=== PATIENT | male | born 1985 | race Two or more races ===

== ENCOUNTER 2019-09-09 21:00 | Emergency (ER) | payer MEDICAID ==
[~2019-09-09] VITALS: Ht 177.8 cm; Wt 93.0 kg
--- NOTE | 2019-09-09 21:05 | NUR ---
PT [facility] [address] [employer] AND ADRIANE. SUICIDAL IDEATION W/ PLANS TO OVER DOSE ON HEROIN OR MEDICATION. DENIES HI. PT AAOX4, VSS, NO ACUTE DISTRESS NOTED. AWAITING FOR MD BLACK. SAFETY PRECAUTIONS IMPLEMENTED. SITTER AT BEDSIDE
--- NOTE | 2019-09-09 21:10 | NUR ---
BLOOD DRAWN AND SENT TO LAB
[2019-09-09 21:21] LABS: BASOPHILS % (AUTO) 0.4 % (0.0-2.0); EOSINOPHILS % (AUTO) 0.8 % (0.0-6.0); HEMATOCRIT 47 % (39-51); HEMOGLOBIN 15.6 g/dL (13.5-17.5); LYMPHOCYTES # (AUTO) 1.7 /CMM (0.8-4.8); MEAN CORPUSCULAR HGB CONC 33 g/dl (31.0-36.0); MEAN CORPUSCULAR VOLUME 96 fL (80-96); MONOCYTES # (AUTO) 1.3 /CMM (0.1-1.30); NEUTROPHILS # (AUTO) 7.6 /CMM (1.8-8.9); NEUTROPHILS % (AUTO) 70.8 % (43.0-81.0); PLATELET COUNT (AUTO) 272 /CMM (150-450); WHITE BLOOD COUNT (AUTO) 10.8 K/uL (4.3-11.0)
[2019-09-09 21:26] LABS: APPEARANCE,URINE Clear (CLEAR); BILIRUBIN,URINE SMALL (NEGATIVE); BLOOD, URINE Negative Ery/uL (NEGATIVE); COLOR,URINE Yellow (YELLOW); KETONES,URINE 15 (NEGATIVE); LEUKOCYTE ESTERASE ,URINE Negative (NEGATIVE); NITRITE, URINE Negative (NEGATIVE); PROTEIN,URINE Negative (NEGATIVE); UGLUCOSE Negative (NEGATIVE); UROBILINOGEN,URINE 0.2 EU/dL (0.2)
[2019-09-09] MEDS ORDERED: IV NS 0.9% 1,000 ML BAG IV ONE (21:30)
[2019-09-09 21:34] LABS: CALCIUM, SERUM 9.7 mg/dL (8.5-10.1); CARBON DIOXIDE 29 mmol/L (21-32); CHLORIDE 103 mmol/L (98-107); CREATININE 1.1 mg/dL (0.6-1.3); GLUCOSE 132 mg/dL (74-106); POTASSIUM 3.5 mmol/L (3.5-5.1); SODIUM SERUM 140 mmol/L (136-145); UREA NITROGEN, BLOOD 23 mg/dL (7-18)
[2019-09-09 21:40] LABS: ACETAMINOPHEN < 2 ug/ml (10-30); ALANINE AMINOTRANSFERASE 63 U/L (12-78); ALBUMIN 4.3 g/dL (3.4-5.0); ALCOHOL, BLOOD < 3 mg/dL (0-0); ALKALINE PHOSPHATASE 68 U/L (46-116); ASPARTATE AMINOTRANSFERASE 39 U/L (15-37); BILIRUBIN,DIRECT 0.1 mg/dL (0.0-0.2); BILIRUBIN,TOTAL 0.5 mg/dL (0.2-1.0); SALICYLATE 3.7 mg/dL (2.8-20.0); TOTAL PROTEIN, SERUM 7.9 g/dL (6.4-8.2)
[2019-09-09 21:43] LABS: BACTERIA,URINE Few /HPF (None Seen); SQUAMOUS EPITHELIAL CELL,UR Few /HPF (None Seen)
[2019-09-09 21:44] LABS: RBC,URINE 0-2 /HPF (0-2); WBC,URINE 0-2 /HPF (0-3)
--- NOTE | 2019-09-09 22:27 | NUR ---
Patient is resting comfortably in bed with eyes closed. Easily aroused. VSS
--- NOTE | 2019-09-09 23:21 | NUR ---
Patient is resting comfortably in bed with eyes closed. Easily aroused. VSS
--- NOTE | 2019-09-10 01:40 | NUR ---
Patient is resting comfortably in bed with eyes closed. Easily aroused. VSS. SITTER AT BEDSIDE. PROVIDED WITH A SANDWICH AND JUICE.
--- NOTE | 2019-09-10 02:51 | NUR ---
Patient is resting comfortably in bed with eyes closed. Easily aroused. VSS. SITTER AT BEDSIDE
--- NOTE | 2019-09-10 04:13 | NUR ---
PATIENT CHART UNDER REVIEW AT [facility]TA[facility]. PER JORGE, WILL CALL BACK ONCE PATIENT IS ACCEPTED.
--- NOTE | 2019-09-10 08:00 | NUR ---
FOOD TRAY PROVIDED. PATIENT A/OX4, BREATHING EVEN AND UNLABORED, NOS OB NOTED. SITTER AT BEDSIDE.
--- NOTE | 2019-09-10 09:19 | NUR ---
CALLED SO G[facility]NA JORGE. WAS INFORMED THAT NURSING SUPERVISIOR NEEDS TO APPROVE A BED
--- NOTE | 2019-09-10 09:28 | NUR ---
SPOKE TO JEAN MARIE AT [facility] INTAKE. ACCEPTED TO [place], BUT AWAITING BED ASSIGNMENT
--- NOTE | 2019-09-10 12:32 | NUR ---
[facility] DR. POOL ADMITTING PHONE# [phone] ext [phone] FOR REPORT CALL BETWEEN 5:45PM-6PM HARHSA ETHNIC STUDIES PROFESSOR
--- NOTE | 2019-09-10 13:00 | NUR ---
FOOD TRAY PROVIDED.
--- NOTE | 2019-09-10 14:40 | NUR ---
[facility] ETA 1900 TRIP NUMBER [id number].
--- NOTE | 2019-09-10 14:46 | NUR ---
CALLED [facility] FOR TRANSPORT TO [facility]. ETA 183.
--- NOTE | 2019-09-10 16:27 | NUR ---
SO [facility] CALLED TO SAY THAT WE CAN PROVIDE REPORT TO NURSING SOFTWARE WRITER. PT GOING TO ROOM 624-B.
--- NOTE | 2019-09-10 16:40 | NUR ---
PATIENT DENIES SI/HI AT THIS TIME, PER PATIENT "I AM NO LONGER SUICIDAL, I WOULD LIKE TO BE DISCHARGED." DR. RIGGS MADE AWARE.
--- NOTE | 2019-09-10 16:53 | NUR ---
CANCELLED BOTH AMBULANCE TRIPS.
--- NOTE | 2019-09-10 17:39 | NUR ---
BELONGINGS GIVEN BACK TO PATIENT. PATIENT DENIES SI/HI, NO DISTRESS NOTED. NEEDS ATTENDED. MEAL TRAY PROVIDED. Patient given written and verbal discharge instructions. Patient verbalizes understanding of instructions. Patient is ambulatory with steady gait. Refuses offer of long term placement. Patient given list of available shelters in surrounding area.
[2019-09-10 18:06] VITALS: BP 115/46
== END 2019-09-10 17:40 | disposition home or self-care (01) ==
LOC: ER 21:02
DX: R45.851 Suicidal ideations (principal); F19.10 Other psychoactive substance abuse, uncomplicated; G43.909 Migraine, unspecified, not intractable, without status migrainosus; Z87.442 Personal history of urinary calculi; Z88.0 Allergy status to penicillin
CPT/HCPCS: 36415; 80048; 80076; 80305; 80307; 80329; 81001; 82550; 85025; 99284; G0480; J7030; 81000-TC